=== PATIENT | male | born 1970 ===

== ENCOUNTER 2020-12-21 14:00 | Inpatient (IN) ==
[2020-12-21] MEDS ORDERED: Povidone Iodine 5% OPTH 30 ML BTL ONE (14:10)
[2020-12-21] MEDS ORDERED: Midazolam 2 mg/2 ml VIAL 1 mg/ml 2 ml VIAL (2 mg) ONE (14:28)
[2020-12-21] MEDS ORDERED: Propofol 10 MG/ML 20 ML BTL ONE ×2 (14:28→16:19)
[2020-12-21] MEDS ORDERED: Lidocaine 2% PF 5 ML VIAL ONE (14:28)
[2020-12-21] MEDS ORDERED: fentaNYL 250 mcg/5 ml 50 MCG/ML 5 ml VIAL (250 MCG) ONE (14:28)
[2020-12-21] MEDS ORDERED: Rocuronium 50 mg VIAL 10 mg/ml 5 ml VIAL (50 mg) ONE (14:28)
[2020-12-21] MEDS ORDERED: Dexamethasone IV 4 MG/ML VIAL 1 ml VIAL ONE (14:32)
[2020-12-21] MEDS ORDERED: ceFAZolin 2 GM PREMIX 2 GM/50 ML BAG ONE (14:45)
[2020-12-21] MEDS ORDERED: Ondansetron 4 mg VIAL 2 MG/ML 2 ml VIAL ONE (14:47)
[2020-12-21] MEDS ORDERED: Glycopyrrolate IV 0.2 MG/ML 1 ML VIAL ONE (14:48)
[2020-12-21] MEDS ORDERED: Etomidate 20 mg/10 ml 2 MG/ML 10 ml VIAL ONE (15:26)
[2020-12-21] MEDS ORDERED: diPHENhydraMINE IV 50 MG/ML 1 ml VIAL (BENADRYL) IV PRN ×2 (16:29→16:30)
[2020-12-21] MEDS ORDERED: DiMENhydriNATE IV 50 mg/ml 1 ml VIAL IV PUSH PRN (16:29)
[2020-12-21] MEDS ORDERED: Naloxone 0.4 mg VIAL 0.4 mg/ml 1 ml VIAL IV PRN (16:29)
[2020-12-21] MEDS ORDERED: fentaNYL 100 mcg/2 ml 50 MCG/ML VIAL IV PRN (16:29)
[2020-12-21] MEDS ORDERED: Morphine 2 MG/ML SYRINGE IV PRN (16:30)
[2020-12-21] MEDS ORDERED: Lactulose 30 ml UDC PO PRN (16:30)
[2020-12-21] MEDS ORDERED: Ondansetron ODT 4 mg TAB 4 MG TAB PO PRN (16:30)
[2020-12-21] MEDS ORDERED: diPHENhydraMINE 25 mg TAB PO PRN (16:30)
[2020-12-21] MEDS ORDERED: Magnesium Hydroxide LIQ 30 ML UDC PO PRN (16:30)
[2020-12-21] MEDS ORDERED: Ondansetron 4 mg VIAL 2 MG/ML 2 ml VIAL IV PRN (16:30)
[2020-12-21] MEDS ORDERED: Dextrose 50% Syringe 50 ml 25 GM/50 ML SYRINGE IV PUSH PRN (16:41)
[2020-12-21] MEDS ORDERED: Nicotine GUM 2MG FRUIT FLAVOR PO PRN (16:50)
[2020-12-21] MEDS ORDERED: Vancomycin per Pharmacy 1 EA NOTE FOLLOW UP SCH (17:00)
[2020-12-21 17:03] LABS: ABS Basophils 0.1 10^3/ul (0-0.2); ABS Lymphocytes 1.1 10^3/ul (1.0-4.8); ABS Monocytes 0.6 10^3/ul (0-0.8); Eosinophil % 0.3 %; Hematocrit 38 % (42-52); Lymphocyte % 12.6 %; Mean Corpuscular HGB Conc 34 g/dL (31-36); Mean Corpuscular Hemoglobin 30 pg (27-31); Mean Corpuscular Volume 88 fL (80-94); Mean Platelet Volume 9.2 fL (7.4-10.4); Nucleated Red Blood Cells % 0.1; Platelet Count 215 10^3/uL (150-450); Red Blood Count 4.37 10^6 /uL (4.18-5.48); Red Cell Distribution Width 14 % (10-15); White Blood Count 8.8 10^3/uL (3.5-10.8)
[2020-12-21 17:21] LABS: C Reactive Protein 31.82 mg/L (<8.01); Calcium 8.2 mg/dL (8.6-10.3); EGFR African American 89.3 (>60); EGFR Non-African American 73.8 (>60); Potassium 4.1 mmol/L (3.5-5.0)
[2020-12-21] MEDS: Nicotine PATCH 21 MG/24 HR PATCH TRANSDERM SCH (18:19)
[2020-12-21] MEDS: D5W 1/2 NS 1000 ml BAG 1,000 ML IV SCH (18:20)
[2020-12-21] MEDS: Cefepime 2 GM in Dextrose 2 GM/50 ML BAG IV SCH (18:34)
[2020-12-21] MEDS ORDERED: Vancomycin 1500 MG IV - x ONCE IVPB ONE (20:00)
[2020-12-21 20:12] LABS: Erythrocyte Sed Rate 19 mm/Hr (0-14)
[2020-12-21] MEDS: Magnesium Hydroxide LIQ 30 ML UDC PO SCH (22:03)
[2020-12-22 06:20] LABS: Hematocrit 36 % (42-52); Hemoglobin 12.3 g/dL (14.0-18.0); Mean Platelet Volume 9.8 fL (7.4-10.4); Platelet Count 221 10^3/uL (150-450)
[2020-12-22] MEDS: Cefepime 2 GM in Dextrose 2 GM/50 ML BAG IV SCH (06:28)
[2020-12-22] MEDS: D5W 1/2 NS 1000 ml BAG 1,000 ML IV SCH (06:30)
[2020-12-22 06:37] LABS: Calcium 8.4 mg/dL (8.6-10.3); EGFR African American 113.3 (>60); EGFR Non-African American 93.7 (>60); Potassium 4.2 mmol/L (3.5-5.0)
[2020-12-22] MEDS: Vitamin THERAPEUTIC TAB PO SCH (08:23)
[2020-12-22] MEDS: Vancomycin 1,500 MG in NS 0.9% 250 ml 250 ML IVPB SCH ×2 (08:23→19:37)
[2020-12-22] MEDS: Magnesium Hydroxide LIQ 30 ML UDC PO SCH ×2 (08:28→19:47)
[2020-12-22] MEDS: Nicotine PATCH 21 MG/24 HR PATCH TRANSDERM SCH (08:28)
[2020-12-22] MEDS: Heparin 5000 UNITS/ML 1 mL VIAL SUBCUT SCH ×2 (08:28→21:35)
[2020-12-22 09:19] LABS: C Reactive Protein 61.51 mg/L (<8.01)
[2020-12-22 09:42] LABS: White Blood Count 9.4 10^3/uL (3.5-10.8)
[2020-12-23] MEDS ORDERED: Vancomycin Trough Check NOTE FOLLOW UP ONE (07:30)
[2020-12-23 07:48] LABS: ABS Basophils 0.1 10^3/ul (0-0.2); ABS Eosinophils 0.2 10^3/ul (0-0.6); ABS Lymphocytes 2.5 10^3/ul (1.0-4.8); ABS Monocytes 0.7 10^3/ul (0-0.8); ABS Neutrophils 5.3 10^3/ul (1.5-7.7); Eosinophil % 2.3 %; Hematocrit 38 % (42-52); Lymphocyte % 28.3 %; Mean Corpuscular HGB Conc 35 g/dL (31-36); Mean Corpuscular Hemoglobin 30 pg (27-31); Mean Corpuscular Volume 87 fL (80-94); Mean Platelet Volume 9.3 fL (7.4-10.4); Platelet Count 264 10^3/uL (150-450); Red Blood Count 4.32 10^6 /uL (4.18-5.48); Red Cell Distribution Width 14 % (10-15); White Blood Count 8.8 10^3/uL (3.5-10.8)
[2020-12-23 08:06] LABS: EGFR African American 128.5 (>60); EGFR Non-African American 106.2 (>60)
[2020-12-23 09:05] LABS: Vancomycin Trough 7.9 mcg/mL
[2020-12-23] MEDS: Magnesium Hydroxide LIQ 30 ML UDC PO SCH ×2 (09:08→20:58)
[2020-12-23] MEDS: Nicotine PATCH 21 MG/24 HR PATCH TRANSDERM SCH (09:08)
[2020-12-23] MEDS: Vitamin THERAPEUTIC TAB PO SCH (09:13)
[2020-12-23] MEDS: Heparin 5000 UNITS/ML 1 mL VIAL SUBCUT SCH ×2 (09:14→21:04)
[2020-12-23] MEDS: Vancomycin 1,500 MG in NS 0.9% 250 ml 250 ML IVPB SCH (09:15)
[2020-12-23] MEDS: Vancomycin 1000 MG in NS 0.9% 250 ML IVPB SCH (17:54)
[2020-12-24] MEDS: Vancomycin 1000 MG in NS 0.9% 250 ML IVPB SCH ×2 (02:07→09:42)
[2020-12-24 05:49] LABS: Hematocrit 40 % (42-52); Hemoglobin 13.5 g/dL (14.0-18.0); Mean Platelet Volume 9.1 fL (7.4-10.4); Platelet Count 301 10^3/uL (150-450)
[2020-12-24] MEDS: Vitamin THERAPEUTIC TAB PO SCH (09:43)
[2020-12-24] MEDS: Heparin 5000 UNITS/ML 1 mL VIAL SUBCUT SCH ×2 (09:43→21:56)
[2020-12-24] MEDS: Nicotine PATCH 21 MG/24 HR PATCH TRANSDERM SCH (09:44)
[2020-12-24] MEDS: Magnesium Hydroxide LIQ 30 ML UDC PO SCH ×2 (09:44→21:52)
[2020-12-24] MEDS: ceFAZolin 2 GM PREMIX 2 GM/50 ML BAG IVPB SCH (17:01)
[2020-12-25] MEDS: ceFAZolin 2 GM PREMIX 2 GM/50 ML BAG IVPB SCH ×4 (00:16→23:35)
[2020-12-25 06:30] LABS: Hematocrit 43 % (42-52); Hemoglobin 14.7 g/dL (14.0-18.0); Platelet Count 366 10^3/uL (150-450)
[2020-12-25] MEDS: Vitamin THERAPEUTIC TAB PO SCH (08:41)
[2020-12-25] MEDS: Magnesium Hydroxide LIQ 30 ML UDC PO SCH ×2 (08:42→20:39)
[2020-12-25] MEDS: Nicotine PATCH 21 MG/24 HR PATCH TRANSDERM SCH (08:42)
[2020-12-25] MEDS: Heparin 5000 UNITS/ML 1 mL VIAL SUBCUT SCH ×2 (08:43→20:40)
[2020-12-25 09:12] LABS: EGFR African American 110.4 (>60); EGFR Non-African American 91.2 (>60)
[2020-12-25] MEDS ORDERED: Vancomycin Trough Check NOTE FOLLOW UP ONE (09:30)
[2020-12-26 08:33] LABS: ABS Basophils 0.1 10^3/ul (0-0.2); ABS Eosinophils 0.3 10^3/ul (0-0.6); ABS Lymphocytes 2.3 10^3/ul (1.0-4.8); ABS Monocytes 0.8 10^3/ul (0-0.8); ABS Neutrophils 6.6 10^3/ul (1.5-7.7); Hematocrit 42 % (42-52); Hemoglobin 13.9 g/dL (14.0-18.0); Lymphocyte % 22.7 %; Mean Corpuscular HGB Conc 33 g/dL (31-36); Mean Corpuscular Hemoglobin 29 pg (27-31); Mean Corpuscular Volume 88 fL (80-94); Mean Platelet Volume 8.8 fL (7.4-10.4); Nucleated Red Blood Cells % 0.1; Platelet Count 364 10^3/uL (150-450); Red Blood Count 4.81 10^6 /uL (4.18-5.48); Red Cell Distribution Width 14 % (10-15); White Blood Count 10.2 10^3/uL (3.5-10.8)
[2020-12-26] MEDS: ceFAZolin 2 GM PREMIX 2 GM/50 ML BAG IVPB SCH ×3 (08:46→23:48)
[2020-12-26] MEDS: Vitamin THERAPEUTIC TAB PO SCH (08:46)
[2020-12-26] MEDS: Magnesium Hydroxide LIQ 30 ML UDC PO SCH ×2 (08:47→21:16)
[2020-12-26] MEDS: Heparin 5000 UNITS/ML 1 mL VIAL SUBCUT SCH ×2 (08:56→21:14)
[2020-12-26] MEDS: Nicotine PATCH 21 MG/24 HR PATCH TRANSDERM SCH (08:56)
[2020-12-27 07:14] LABS: ABS Basophils 0.1 10^3/ul (0-0.2); ABS Eosinophils 0.4 10^3/ul (0-0.6); ABS Lymphocytes 2.4 10^3/ul (1.0-4.8); ABS Monocytes 0.7 10^3/ul (0-0.8); ABS Neutrophils 6.8 10^3/ul (1.5-7.7); Eosinophil % 3.5 %; Hematocrit 40 % (42-52); Hemoglobin 13.9 g/dL (14.0-18.0); Lymphocyte % 23.5 %; Mean Corpuscular HGB Conc 35 g/dL (31-36); Mean Corpuscular Hemoglobin 30 pg (27-31); Mean Corpuscular Volume 87 fL (80-94); Mean Platelet Volume 9.4 fL (7.4-10.4); Nucleated Red Blood Cells % 0.1; Platelet Count 362 10^3/uL (150-450); Red Blood Count 4.58 10^6 /uL (4.18-5.48); Red Cell Distribution Width 15 % (10-15); White Blood Count 10.4 10^3/uL (3.5-10.8)
[2020-12-27] MEDS: Magnesium Hydroxide LIQ 30 ML UDC PO SCH (07:31)
[2020-12-27] MEDS: Nicotine PATCH 21 MG/24 HR PATCH TRANSDERM SCH (07:31)
[2020-12-27] MEDS: ceFAZolin 2 GM PREMIX 2 GM/50 ML BAG IVPB SCH ×2 (08:01→16:13)
[2020-12-27] MEDS: Vitamin THERAPEUTIC TAB PO SCH (08:01)
[2020-12-27] MEDS: Heparin 5000 UNITS/ML 1 mL VIAL SUBCUT SCH (08:01)
[2020-12-27 16:08] VITALS: BP 141/90
== END 2020-12-27 17:10 | disposition home or self-care (01) | DRG 315 ==
LOC: OR 14:00 → SSU 17:50
PROVIDERS: ADMIT Orthopaedic Surgery; ATTEND Orthopaedic Surgery